=== PATIENT | male | born 1950 | race Caucasian/White ===

== ENCOUNTER 2018-07-19 08:56 | Day surgery (SDC) | payer MEDICARE, BC ==
[2018-07-19] MEDS ORDERED: Sodium Chloride 0.9% 1,000 ML IV SCH (09:30)
[2018-07-19] MEDS ORDERED: Propofol 200 MG/20 ML SDV ONE ×2 (10:32→11:33)
[2018-07-19] MEDS ORDERED: fentaNYL 100 MCG/2 ML SDV ONE (10:32)
[2018-07-19] MEDS ORDERED: Midazolam 1 MG/ML 2 ML SDV ONE (10:32)
--- NOTE | 2018-07-20 08:06 | OR ---
DATE OF PROCEDURE: 07/19/2018 SURGEON: Pato Iyer MD PROCEDURE: Colonoscopy. FINDINGS: Transverse colon polyp, approximately 8 mm, completely removed using snare. COMPLICATIONS: None. CHILDREN'S [facility] MAGISTRATE: None. ANESTHESIA: MAC. PREOPERATIVE DIAGNOSIS: Screening colonoscopy. POSTOPERATIVE DIAGNOSIS: Screening colonoscopy. RISKS: Risks, benefits, alternatives, and limitations including, but not limited to infection, bleeding, and perforation were explained to the patient, who wished to proceed. PROCEDURE IN DETAIL: The patient was placed in left lateral decubitus position. Digital rectal exam was performed without abnormality. The scope was introduced and advanced atraumatically to the ileocecal valve. The scope was brought back through the ascending, transverse, descending colon, and retroflexed. The aforementioned polyp was identified and completely removed. No abnormalities and retroflexed. No diverticulosis. No other abnormalities. The patient tolerated the procedure well. Pato Iyer MD /[id number]
== END 2018-07-19 12:55 | disposition home or self-care (01) ==
LOC: JP.SDS 08:56
PROVIDERS: ATTEND Surgery
DX: Z12.11 Encounter for screening for malignant neoplasm of colon (principal); K63.5 Polyp of colon
CPT/HCPCS: 45385; 88305; J2250; J2704; J3010; J7030

== ENCOUNTER 2020-07-22 08:02 | Emergency (ER) | payer MEDICARE, BC ==
--- NOTE | 2020-07-22 08:58 | CR ---
CHEST: Portable 07/22/2020 at 8:41 AM CLINICAL HISTORY:covid COMPARISON:CT 2017 FINDINGS: There is some minimal patchy perihilar density bilaterally. There is also some patchy density in the right infrahilar region. Heart size and pulmonary vascularity are normal. There are no effusions. Impression: Minimal patchy perihilar densities. These may represent areas of infiltrate. Upright two-view chest recommended when patient's condition allows
[2020-07-22] MEDS: Ketorolac 30 MG/ML SDV IVPUSH ONE (08:59)
[2020-07-22] MEDS: Acetaminophen 500 MG Tab PO ONE (08:59)
--- NOTE | 2020-07-22 09:17 | EDM.PDOC ---
ED HPI GENERAL MEDICAL PROBLEM - General Chief Complaint: General Stated Complaint: COVID POSITIVE Time Seen by Provider: 07/22/20 08:15 Source of Information: Reports: Patient History Limitations: Reports: No Limitations - History of Present Illness INITIAL COMMENTS - FREE TEXT/NARRATIVE: 69-year-old male who was tested positive for Covid 6 days ago, feels like he is becoming more weak, ill, significant headache and fatigue. Did not get vaccinated. His just got discharged from [facility] 2 days ago when she became hypoxic. He was driving up to [place] yesterday and had a brief episode of syncope and he is sleeping a lot. He is main concern is his significant fatigue and headache with fevers. Also having persistent diarrhea, even episodes of incontinence with coughing Onset: Gradual Duration: Day(s): (6 or 7 days of symptoms) Associated Symptoms: Reports: Cough, Fever/Chills, Malaise, Shortness of Breath, Weakness, Other (Headache). Denies: Confusion general Pain Score (Numeric/FACES): 7 - Related Data Allergies Allergy/AdvReac Type Severity Reaction Status Date / Time No Known Allergies Allergy Verified 07/22/20 08:17 Home Meds: Home Meds NK [No Known Home Meds] 07/22/20 [History] Past Medical History HEENT History: Reports: Hard of Hearing, Other (See Below) Other HEENT History: wears glasses Cardiovascular History: Reports: Afib Genitourinary History: Reports: Renal Calculus Musculoskeletal History: Reports: Arthritis, Back Pain, Chronic, Fracture, Other (See Below) Other Musculoskeletal History: torn meniscus bilat knees, broken fingers, foot Neurological History: Reports: Concussion Endocrine/Metabolic History: Reports: Obesity/BMI 30+ - Infectious Disease History Infectious Disease History: Reports: Chicken Pox - Past Surgical History Cardiovascular Surgical History: Reports: Cardiac Ablation GI Surgical History: Reports: Colonoscopy Musculoskeletal Surgical History: Reports: Arthroscopic Knee Dermatological Surgical History: Reports: Skin Biopsy Social & Family History - Tobacco Use Tobacco Use Status *Q: Never Tobacco User Second Hand Smoke Exposure: No - Caffeine Use Caffeine Use: Reports: None - Alcohol Use Days Per Week of Alcohol Use: 7 Number of Drinks Per Day: 2 Total Drinks Per Week: 14 - Recreational Drug Use Recreational Drug Use: No ED ROS GENERAL - Review of Systems Review Of Systems: See Below Constitutional: Reports: Fever, Chills, Malaise HEENT: Denies: Throat Pain Respiratory: Reports: Shortness of Breath, Cough. Denies: Sputum Cardiovascular: Denies: Palpitations Endocrine: Reports: Fatigue GI/Abdominal: Reports: Diarrhea, Decreased Appetite. Denies: Nausea, Vomiting : Reports: No Symptoms Musculoskeletal: Reports: Other (Hurts everywhere) Skin: Denies: Rash Neurological: Reports: Headache, Weakness Psychiatric: Reports: No Symptoms ED EXAM, GENERAL - Physical Exam Exam: See Below Exam Limited By: No Limitations General Appearance: Alert, No Apparent Distress (Looks very ill and very tired but in no distress) Eye Exam: Bilateral Eye: Normal Inspection Head: Atraumatic Respiratory/Chest: No Respiratory Distress, Lungs Clear Cardiovascular: Regular Rate, Rhythm. No: Tachycardia GI/Abdominal: Non-Tender Extremities: No: Pedal Edema Neurological: Alert, Oriented Psychiatric: Flat Affect Skin Exam: Warm, Dry Course - Vital Signs Last Recorded V/S: Last Vital Signs Temp 100.1 F 07/22/20 09:15 Pulse 80 07/22/20 09:15 Resp 16 07/22/20 09:15 BP 120/85 07/22/20 09:15 Pulse Ox 94 L 07/22/20 09:15 - Orders/Labs/Meds Meds: Medications Discontinued Medications Generic Name Dose Route Start Last Admin Trade Name Ramon PRN Reason Stop Dose Admin Acetaminophen 1,000 mg 07/22/20 08:43 07/22/20 08:59 Acetaminophen 500 Mg Tab PO 07/22/20 08:44 1,000 mg ONETIME ONE Administration Ketorolac Tromethamine 30 mg 07/22/20 08:43 07/22/20 08:59 Ketorolac 30 Mg/Ml Sdv IVPUSH 07/22/20 08:44 30 mg ONETIME ONE Administration - Re-Assessments/Exams Free Text/Narrative Re-Assessment/Exam: 07/22/20 09:16 1 view chest x-ray was done which is actually reassuring, 1 small infiltrate possible in the right base. An IV was started and the patient was given 30 mg of IV Toradol along with 1000 mg of oral acetaminophen. I think he is a good candidate for monoclonal antibody therapy and he is willing to accept that, this was arranged. Departure - Departure Time of Disposition: 09:35 Disposition: Home, Self-Care 01 Clinical Impression: COVID-19 - Discharge Information Instructions: COVID-19 Referrals: PCP,None [Primary Care Provider] - Forms: ED Department Discharge Care Plan Goals: Patient was discharged from the emergency room to be admitted as an outpatient for monoclonal antibody therapy. He was encouraged to recheck over the next 48 to 72 hours if not improving satisfactorily. Recheck particularly if increased difficulty breathing. Sepsis Event Note (ED) - Evaluation Sepsis Screening Result: No Definite Risk - Focused Exam Vital Signs: Vital Signs Temp Pulse Resp BP Pulse Ox 07/22/20 09:15 100.1 F 80 16 120/85 94 L 07/22/20 08:06 102.1 F H 90 16 121/67 94 L
== END 2020-07-22 09:20 | disposition home or self-care (01) ==
LOC: JP.ED 08:02
DX: U07.1 COVID-19 (principal); I48.91 Unspecified atrial fibrillation; E66.9 Obesity, unspecified; Z68.32 Body mass index [BMI] 32.0-32.9, adult
CPT/HCPCS: 71045; 96374; 99284; A9270; J1885

== ENCOUNTER 2021-01-26 21:20 | Emergency (ER) | payer MEDICARE, BC ==
--- NOTE | 2021-01-26 21:54 | EDM.PDOC ---
ED HPI GENERAL MEDICAL PROBLEM - General Chief Complaint: General Stated Complaint: POSSIBLE CARBON MONOXIDE POISONING Time Seen by Provider: 01/26/21 21:43 Source of Information: Reports: Patient, RN Notes Reviewed History Limitations: Reports: No Limitations - History of Present Illness INITIAL COMMENTS - FREE TEXT/NARRATIVE: 70-year-old gentleman presents emergency department today complaint of carbon monoxide exposure, he was working on his bobcat in an enclosed garage no ventilation he estimates maybe 15minutes started to feel poorly did get some fresh air however symptoms did not improve. Complains of headache behind the eyes stiff neck some dizziness some nausea Headache Pain Score (Numeric/FACES): 7 - Related Data Allergies Allergy/AdvReac Type Severity Reaction Status Date / Time No Known Allergies Allergy Verified 01/26/21 21:36 Home Meds: Home Meds NK [No Known Home Meds] 07/22/20 [History] Past Medical History HEENT History: Reports: Hard of Hearing, Other (See Below) Other HEENT History: wears glasses Cardiovascular History: Reports: Afib Genitourinary History: Reports: Renal Calculus Musculoskeletal History: Reports: Arthritis, Back Pain, Chronic, Fracture, Other (See Below) Other Musculoskeletal History: torn meniscus bilat knees, broken fingers, foot Neurological History: Reports: Concussion Endocrine/Metabolic History: Reports: Obesity/BMI 30+ - Infectious Disease History Infectious Disease History: Reports: Chicken Pox - Past Surgical History Cardiovascular Surgical History: Reports: Cardiac Ablation GI Surgical History: Reports: Colonoscopy Musculoskeletal Surgical History: Reports: Arthroscopic Knee, Hip Replacement Dermatological Surgical History: Reports: Skin Biopsy Social & Family History - Tobacco Use Tobacco Use Status *Q: Never Tobacco User - Caffeine Use Caffeine Use: Reports: None - Alcohol Use Days Per Week of Alcohol Use: 4 Number of Drinks Per Day: 1 Total Drinks Per Week: 4 - Recreational Drug Use Recreational Drug Use: No ED ROS GENERAL - Review of Systems Review Of Systems: See Below Constitutional: Reports: Weakness, Fatigue. Denies: Fever HEENT: Reports: No Symptoms Respiratory: Reports: No Symptoms Cardiovascular: Reports: No Symptoms GI/Abdominal: Reports: Nausea : Reports: No Symptoms Musculoskeletal: Reports: Neck Pain ED EXAM, GENERAL - Physical Exam Exam: See Below Exam Limited By: No Limitations General Appearance: Alert, WD/WN, No Apparent Distress Respiratory/Chest: No Respiratory Distress, Lungs Clear, Normal Breath Sounds, No Accessory Muscle Use, Chest Non-Tender Cardiovascular: Regular Rate, Rhythm, No Murmur GI/Abdominal: Soft, Non-Tender Course - Vital Signs Last Recorded V/S: Last Vital Signs Temp 97.6 F 01/26/21 21:35 Pulse 62 01/27/21 02:00 Resp 14 01/27/21 02:00 BP 104/71 01/27/21 02:00 Pulse Ox 94 L 01/27/21 02:00 - Orders/Labs/Meds Orders: Active Orders 24 hr Category Date Time Status Cardiac Monitoring [RC] .As Directed Care 01/26/21 21:49 Active Peripheral IV Care [RC] . DIRECTED Care 01/26/21 21:50 Active Lactated Ringers [Ringers, Lactated] 1,000 ml Med 01/26/21 22:00 Active IV .BOLUS Sodium Chloride 0.9% [Saline Flush] Med 01/26/21 21:49 Active 10 ml FLUSH ASDIRECTED PRN Peripheral IV Insertion Adult [OM.PC] Stat Oth 01/26/21 21:49 Ordered Medication Orders Lactated Ringer's (Ringers, Lactated) 1,000 mls @ 500 mls/hr IV .BOLUS JOSEPHINE Last Admin: 01/26/21 21:58 Dose: 500 mls/hr Documented by: HUGO Sodium Chloride (Sodium Chloride 0.9% 10 Ml Syringe) 10 ml FLUSH ASDIRECTED PRN PRN Reason: Keep Vein Open Last Admin: 01/26/21 21:59 Dose: 10 ml Documented by: HUGO Labs: Laboratory Tests 01/26/21 01/26/21 01/26/21 Range/Units 21:50 21:57 21:57 WBC 8.4 (4.5-11.0) K/uL RBC 5.80 (4.30-5.90) M/uL Hgb 16.4 H (12.0-15.0) g/dL Hct 47.6 (40.0-54.0) % MCV 82 (80-98) fL MCH 28 (27-31) pg MCHC 35 (32-36) % Plt Count 202 (150-400) K/uL Neut % (Auto) 60.2 (36-66) % Lymph % (Auto) 30.2 (24-44) % [place] % (Auto) 7.9 H (2-6) % Eos % (Auto) 1.2 L (2-4) % Baso % (Auto) 0.5 (0-1) % Puncture Site rt.radial ABG pH 7.467 H (7.350-7.450) ABG pCO2 36.5 (35.0-42.0) mmHg ABG pO2 106.0 H (75.0-100.0) mmHg ABG HCO3 26.0 (22.0-26.0) mmol/L ABG Total CO2 22.0 L (23.0-27.0) mmol/L ABG O2 Saturation 98.6 H (95.0-98.0) % ABG O2 Content 19.1 (15.0-23.0) %vol ABG Base Excess 3.0 mm/L ABG Hemoglobin 15.9 (13.5-18.0) g/dL ABG Oxyhemoglobin 85.1 % ABG Carboxyhemoglobin 12.6 H (0.0-1.6) % ABG Methemoglobin 1.1 % Timbo Test passed O2 Delivery Device Nasal cannula Oxygen Flow Rate 3.0 L Sodium 145 (140-148) mmol/L Potassium 3.8 (3.6-5.2) mmol/L Chloride 108 (100-108) mmol/L Carbon Dioxide 28 (21-32) mmol/L Anion Gap 8.8 (5.0-14.0) mmol/L BUN 18 (7-18) mg/dL Creatinine 1.1 (0.8-1.3) mg/dL Est Cr Clr Drug Dosing 64.27 mL/min Estimated GFR (MDRD) > 60 (>60) Glucose 93 (74-106) mg/dL Lactic Acid (0.4-2.0) mmol/L Calcium 8.9 (8.5-10.1) mg/dL Total Bilirubin 0.5 (0.2-1.0) mg/dL AST 19 (15-37) U/L ALT 40 (12-78) U/L Alkaline Phosphatase 56 (46-116) U/L Creatine Kinase (39-308) U/L Troponin I < 0.017 (0.000-0.056) ng/mL Total Protein 6.9 (6.4-8.2) g/dL Albumin 3.7 (3.4-5.0) g/dL Globulin 3.2 (2.3-3.5) g/dL Albumin/Globulin Ratio 1.2 (1.2-2.2) 01/26/21 01/26/21 01/27/21 Range/Units 21:57 21:57 02:17 WBC (4.5-11.0) K/uL RBC (4.30-5.90) M/uL Hgb (12.0-15.0) g/dL Hct (40.0-54.0) % MCV (80-98) fL MCH (27-31) pg MCHC (32-36) % Plt Count (150-400) K/uL Neut % (Auto) (36-66) % Lymph % (Auto) (24-44) % [place]rie % (Auto) (2-6) % Eos % (Auto) (2-4) % Baso % (Auto) (0-1) % Puncture Site Lt radial ABG pH 7.390 (7.350-7.450) ABG pCO2 40.3 (35.0-42.0) mmHg ABG pO2 94.9 (75.0-100.0) mmHg ABG HCO3 23.9 (22.0-26.0) mmol/L ABG Total CO2 20.8 L (23.0-27.0) mmol/L ABG O2 Saturation 97.3 (95.0-98.0) % ABG O2 Content 19.4 (15.0-23.0) %vol ABG Base Excess -0.5 mm/L ABG Hemoglobin 14.9 (13.5-18.0) g/dL ABG Oxyhemoglobin 92.4 % ABG Carboxyhemoglobin 3.7 H (0.0-1.6) % ABG Methemoglobin 1.3 % Timbo Test Passed O2 Delivery Device Simple mask Oxygen Flow Rate 15.0 L Sodium (140-148) mmol/L Potassium (3.6-5.2) mmol/L Chloride (100-108) mmol/L Carbon Dioxide (21-32) mmol/L Anion Gap (5.0-14.0) mmol/L BUN (7-18) mg/dL Creatinine (0.8-1.3) mg/dL Est Cr Clr Drug Dosing mL/min Estimated GFR (MDRD) (>60) Glucose (74-106) mg/dL Lactic Acid 0.7 (0.4-2.0) mmol/L Calcium (8.5-10.1) mg/dL Total Bilirubin (0.2-1.0) mg/dL AST (15-37) U/L ALT (12-78) U/L Alkaline Phosphatase (46-116) U/L Creatine Kinase 38 L (39-308) U/L Troponin I (0.000-0.056) ng/mL Total Protein (6.4-8.2) g/dL Albumin (3.4-5.0) g/dL Globulin (2.3-3.5) g/dL Albumin/Globulin Ratio (1.2-2.2) Meds: Medications Generic Name Dose Route Start Last Admin Trade Name Freq PRN Reason Stop Dose Admin Lactated Ringer's 1,000 mls @ 500 mls/hr 01/26/21 22:00 01/26/21 21:58 Ringers, Lactated IV 500 mls/hr .BOLUS JOSEPHINE Administration Sodium Chloride 10 ml 01/26/21 21:49 01/26/21 21:59 Sodium Chloride 0.9% 10 Ml Syringe FLUSH 10 ml ASDIRECTED PRN Administration Keep Vein Open Discontinued Medications Generic Name Dose Route Start Last Admin Trade Name Freq PRN Reason Stop Dose Admin Fentanyl 50 mcg 01/26/21 22:05 01/26/21 22:28 Fentanyl 100 Mcg/2 Ml Sdv IVPUSH 01/26/21 22:06 50 mcg ONETIME ONE Administration Ondansetron HCl 4 mg 01/26/21 22:05 01/26/21 22:27 Ondansetron 4 Mg/2 Ml Sdv IVPUSH 01/26/21 22:06 4 mg ONETIME ONE Administration Departure - Departure Time of Disposition: 02:45 Disposition: Home, Self-Care 01 Condition: Good Clinical Impression: Toxic effect carbon monoxide from motor vehic exhaust, unintentional Qualifiers: Encounter type: initial encounter Qualified Code(s): T58.01XA - Toxic effect of carbon monoxide from motor vehicle exhaust, accidental (unintentional), initial encounter - Discharge Information Instructions: Carbon Monoxide Poisoning, [id number] Referrals: Jonas Tapia NP [Primary Care Provider] - Forms: ED Department Discharge Additional Instructions: Please followup with your primary care provider in 3-5 days if not better, please call return to the emergency department with worsening of symptoms. Sepsis Event Note (ED) - Evaluation Sepsis Screening Result: No Definite Risk - Focused Exam Vital Signs: Vital Signs Temp Pulse Resp BP Pulse Ox 01/27/21 02:00 62 14 104/71 94 L 01/27/21 01:00 70 16 94/49 L 92 L 01/27/21 00:00 62 18 111/76 93 L 01/26/21 23:12 70 116/81 95 01/26/21 22:32 80 16 118/88 96 01/26/21 21:35 97.6 F 88 16 121/83 96 01/26/21 21:33 97.6 F 88 16 121/83 96 - My Orders Last 24 Hours: My Active Orders 01/26/21 21:49 Cardiac Monitoring [RC] .As Directed Sodium Chloride 0.9% [Saline Flush] 10 ml FLUSH ASDIRECTED PRN Peripheral IV Insertion Adult [OM.PC] Stat 01/26/21 21:50 Peripheral IV Care [RC] . DIRECTED 01/26/21 22:00 Lactated Ringers [Ringers, Lactated] 1,000 ml IV .BOLUS - Assessment/Plan Last 24 Hours: My Active Orders 01/26/21 21:49 Cardiac Monitoring [RC] .As Directed Sodium Chloride 0.9% [Saline Flush] 10 ml FLUSH ASDIRECTED PRN Peripheral IV Insertion Adult [OM.PC] Stat 01/26/21 21:50 Peripheral IV Care [RC] . DIRECTED 01/26/21 22:00 Lactated Ringers [Ringers, Lactated] 1,000 ml IV .BOLUS Plan: Assessment Acuity = acute Site and laterality = carbon monoxide toxicity Etiology = carbon monoxide from running gas engine Manifestations = none Location of injury = Home Lab values = CBC CMP troponin all within normal limits ABG reveals a carbon monoxide initially 12.6 and now down to 3.7 after treatment Plan All of symptoms have resolved with high flow oxygen, follow-up primary care as needed This note was dictated using [employer] voice recognition software please call with any questions on syntax or grammar.
[2021-01-26] MEDS: Lactated Ringers 1,000 ML IV SCH (21:58)
[2021-01-26] MEDS: Sodium Chloride 0.9% 10 ML Syringe FLUSH PRN (21:59)
[2021-01-26] MEDS: Ondansetron 4 MG/2 ML SDV IVPUSH ONE (22:27)
[2021-01-26] MEDS: fentaNYL 100 MCG/2 ML SDV IVPUSH ONE (22:28)
== END 2021-01-27 03:05 | disposition home or self-care (01) ==
LOC: JP.ED 21:20
DX: T58.01XA Toxic effect of carbon monoxide from motor vehicle exhaust, accidental (unintentional), initial encounter (principal); I48.91 Unspecified atrial fibrillation; E66.9 Obesity, unspecified; Z68.32 Body mass index [BMI] 32.0-32.9, adult
CPT/HCPCS: 36415; 36600; 80053; 82550; 82803; 83605; 84484; 85025; 96374; 96375; 99283; J2405; J3010; J7120

== ENCOUNTER 2022-02-06 13:40 | Emergency (ER) | payer MEDICARE, BC | END 2022-02-06 14:06 | disposition left against medical advice (07) | LOC: JP.ED 13:40 | DX: Z53.21 Procedure and treatment not carried out due to patient leaving prior to being seen by health care provider (principal) ==

== ENCOUNTER 2022-09-22 06:24 | Day surgery (SDC) | payer MEDICARE, BC ==
[2022-09-22] MEDS ORDERED: Sodium Chloride 0.9% 1,000 ML IV SCH (07:00)
[2022-09-22 07:22] LABS: HEMATOCRIT 41.5 % (38.4-49.7); HEMOGLOBIN 14.3 g/dL (12.9-16.9); MEAN CORPUSCULAR HEMOGLOBIN 28.9 pg (31.6-35.5); MEAN CORPUSCULAR HGB CONC 34.5 g/dL (31.6-35.5); RED BLOOD CELL COUNT 4.94 M/uL (4.14-5.76); WHITE BLOOD CELL COUNT,WBC 5.8 K/uL (3.2-11.0)
[2022-09-22] MEDS ORDERED: fentaNYL 250 MCG/5 ML SDV ONE (07:22)
[2022-09-22] MEDS ORDERED: Dexamethasone 4 MG/ML SDV ONE (07:23)
[2022-09-22] MEDS ORDERED: Rocuronium 50 MG/5 ML Vial ONE ×2 (07:23→09:14)
[2022-09-22] MEDS ORDERED: Succinylcholine 200 MG/10 ML MDV ONE (07:23)
[2022-09-22] MEDS ORDERED: Neostigmine Methylsulfate 1 MG/ML 5 ML Syringe ONE (07:23)
[2022-09-22] MEDS ORDERED: Ondansetron 4 MG/2 ML SDV ONE (07:23)
[2022-09-22] MEDS ORDERED: Propofol 200 MG/20 ML SDV ONE (07:23)
[2022-09-22] MEDS ORDERED: Glycopyrrolate 0.2 MG/ML 5 ML MDV ONE (07:23)
[2022-09-22] MEDS ORDERED: Bupivacaine 0.5% 50 ML MDV ONE (07:25)
[2022-09-22] MEDS ORDERED: metroNIDAZOLE/Normal Saline 500 MG in Premix Bag 1 BAG IV ONE (07:30)
[2022-09-22] MEDS ORDERED: ceFAZolin 2 GM in Premix Bag 1 BAG IV ONE (07:30)
[2022-09-22 07:43] LABS: A/G RATIO 1.1 (1.2-2.2); ALANINE AMINOTRANSFERASE,ALT 23 U/L (12-78); ALBUMIN 3.3 g/dL (3.4-5.0); ALKALINE PHOSPHATASE 53 U/L (46-116); ANION GAP 8.4 mmol/L (5.0-14.0); ASPARTATE AMNIOTRANSFERASE,AST 19 U/L (15-37); BILIRUBIN TOTAL 0.9 mg/dL (0.2-1.0); BLOOD UREA NITROGEN,BUN 12 mg/dL (7-18); CALCIUM 8.3 mg/dL (8.5-10.1); CARBON DIOXIDE,CO2 25 mmol/L (21-32); CHLORIDE,CL 108 mmol/L (100-108); EST CRCL DRUG DOSING (CG) 69.72 mL/min; ESTIMATED GFR 81 mL/min (>60); GLUCOSE RANDOM 91 mg/dL (74-106); POTASSIUM,K 3.8 mmol/L (3.6-5.2); PROTEIN TOTAL,TP 6.3 g/dL (6.4-8.2); SODIUM,NA 141 mmol/L (140-148)
[2022-09-22] MEDS ORDERED: Ropivacaine 50 ML, dexAMETHasone 8 MG, EPINEPHrine 0.4 MG, Sodium Chloride 0.9% 27.6 ML NERVRT SCH ×4 (07:45)
[2022-09-22] MEDS ORDERED: ePHEDrine 50 MG/ML SDV ONE (08:27)
[2022-09-22] MEDS ORDERED: Lactated Ringers 1,000 ML ONE (09:10)
[2022-09-22] MEDS ORDERED: Acetaminophen/HYDROcodone 325-5 MG Tab PO PRN (11:12)
== END 2022-09-22 13:15 | disposition home or self-care (01) ==
LOC: JP.SDS 06:24
PROVIDERS: ATTEND Surgery
DX: K40.90 Unilateral inguinal hernia, without obstruction or gangrene, not specified as recurrent (principal); E78.5 Hyperlipidemia, unspecified; Z98.890 Other specified postprocedural states; Z79.899 Other long term (current) drug therapy
CPT/HCPCS: 36415; 49650; 80053; 85027; C1713; C1781; J0171; J0330; J0690; J1100; J2405; J2704; J2710; J2795; J3010; J3490; J7030; J7120

== ENCOUNTER 2023-12-09 09:06 | Emergency (ER) | payer OTHER, MEDICARE, BC | END 2023-12-09 10:02 | disposition home or self-care (01) | LOC: JP.ED 09:06 | DX: L03.012 Cellulitis of left finger (principal); E66.9 Obesity, unspecified; Z86.16 Personal history of COVID-19; Z68.32 Body mass index [BMI] 32.0-32.9, adult | CPT/HCPCS: 99283 ==